=== PATIENT | male | born 1950 | race Caucasian/White ===

== ENCOUNTER 2021-04-17 23:04 | Emergency (ER) | payer OTHER ==
[2021-04-17 23:28] VITALS: BP 107/70; PULSE 70; TEMP 97; BMI 24.3
[2021-04-17] MEDS ORDERED: DIPHTH,PERTUSS(ACELL),TET 0.5 ML DISP.SYRIN IM ONE ×2 (23:36→23:41)
== END 2021-04-18 01:15 | disposition home or self-care (01) ==
LOC: JER 23:04
PROC: 0HQFXZZ Repair Right Hand Skin, External Approach (ICD-10-PCS; principal; 2021-04-17)
PROC: 3E0234Z Introduction of Serum, Toxoid and Vaccine into Muscle, Percutaneous Approach (ICD-10-PCS; 2021-04-17)
DX: S61.212A Laceration without foreign body of right middle finger without damage to nail, initial encounter (principal)
CPT/HCPCS: 90715; 99284-25